=== PATIENT | female | born 1990 | race Asian ===

== ENCOUNTER 2018-11-14 05:41 | Inpatient (IN) | payer BC ==
[~2018-11-14] VITALS: Ht 167.6 cm; Wt 81.2 kg
[~2018-11-14 05:41] MED LIST: CYAN100T PO; FERR324T4 PO; PREN-134 PO
[2018-11-14] MEDS ORDERED: LACTATED RINGERS 1,000 ML IV SCH (06:15)
[2018-11-14 06:41] LABS: EOSINOPHILS % 2.1 % (0.0-5.0); HEMATOCRIT. 35.5 % (36.0-48.0); HEMOGLOBIN. 11.4 g/dL (12.0-16.0); LYMPHOCYTES % 35.1 % (20.0-50.0); MEAN CORPUSCULAR HEMOGLOBIN 27.5 pg (28.0-32.0); MEAN CORPUSCULAR VOLUME 85.6 fL (81.0-99.0); MEAN PLATELET VOLUME 7.5 fl (7.4-10.4); MONOCYTES % 7.4 % (2.0-8.0); NEUTROPHILS % 54.4 % (40.0-76.0); PLATELET 402 x1000/uL (130-400); RED BLOOD CELL COUNT 4.15 mill/uL (4.2-5.4); RED CELL DISTRIBUTION WIDTH 15.8 % (11.6-14.6)
[2018-11-14 06:45] LABS: CLARITY URINE CLEAR (CLEAR); COLOR URINE YELLOW (YELLOW); KETONES URINE NEGATIVE (NEGATIVE); LEUKOCYTE ESTERASE URINE NEGATIVE (NEGATIVE); NITRITE URINE NEGATIVE (NEGATIVE); OCCULT BLOOD URINE NEGATIVE (NEGATIVE); PROTEIN URINE NEGATIVE (NEGATIVE); UROBILINOGEN URINE 0.2 E.U./dL (0.2-1.0)
[2018-11-14 06:50] LABS: UCG SCREEN NEGATIVE
[2018-11-14 06:50] LABS: PARTIAL THROMBOPLASTIN TIME 33.4 sec (23.4-31.0); PROTHROMBIN TIME 9.8 sec (9.1-11.1)
[2018-11-14] MEDS ORDERED: VASOPRESSIN 20 UNIT/ML 1ML ONE (06:50)
[2018-11-14 06:51] LABS: CHLORIDE 107 mEq/L (98-107)
[2018-11-14] MEDS ORDERED: MIDAZOLAM HCL 2 MG/2 ML VIAL ONE (07:20)
[2018-11-14] MEDS ORDERED: FENTANYL CITRATE/PF 50MCG/ML 5ML VIAL ONE (07:20)
[2018-11-14] MEDS ORDERED: PROPOFOL 200MG/20ML VIAL IV ONE ×3 (07:20→09:59)
[2018-11-14] MEDS ORDERED: ROCURONIUM BROMIDE 10MG/ML VIAL 5ML IV ONE ×2 (07:20→08:52)
[2018-11-14] MEDS ORDERED: LIDOCAINE HCL/PF 1% 10 MG/ML 5ML VIAL ONE (07:24)
[2018-11-14] MEDS ORDERED: METHYLENE BLUE 50 MG/10 ML AMP IV ONE (07:35)
[2018-11-14] MEDS ORDERED: DEXAMETHASONE 4MG/ML 1ML VIAL ONE (08:22)
[2018-11-14] MEDS ORDERED: ONDANSETRON HCL 4MG/2ML INJ ONE (08:22)
[2018-11-14] MEDS ORDERED: HYDROMORPHONE HCL/PF 2MG/ML (OR) ONE (09:05)
[2018-11-14] MEDS ORDERED: ONDANSETRON HCL 4MG/2ML INJ IV PRN (09:15)
[2018-11-14] MEDS ORDERED: MEPERIDINE HCL/PF 25MG/ML CPJ IV PRN (09:15)
[2018-11-14] MEDS ORDERED: GLYCOPYRROLATE 0.2 MG/ML 2ML VIAL ONE (10:26)
[2018-11-14] MEDS ORDERED: HYDROMORPHONE PCA 10MG/50ML IV PRN (11:30)
[2018-11-14] MEDS ORDERED: ONDANSETRON INJ IV PRN (11:30)
[2018-11-14] MEDS ORDERED: NALOXONE INJ IV PRN (11:30)
[2018-11-14] MEDS ORDERED: DIPHENHYDRAMINE INJ IV PRN (11:30)
[2018-11-14] MEDS: HYDROMORPHONE HCL/PF 2MG/ML CPJ IV PRN ×6 (12:22→12:52)
[2018-11-14] MEDS: FENTANYL CITRATE/PF 50MCG/ML 2ML VIAL IV PRN ×2 (12:37→12:45)
[2018-11-14 15:00] VITALS: BP 131/69
[2018-11-14] MEDS: LACTATED RINGERS 1,000 ML IV SCH (17:33)
[2018-11-14 20:00] VITALS: BP 130/62
[2018-11-14] MEDS: IBUPROFEN 600MG TABLET PO PRN (20:13)
[2018-11-15] VITALS: BP 122/67
[2018-11-15] MEDS: LACTATED RINGERS 1,000 ML IV SCH ×3 (00:44→21:17)
[2018-11-15 04:27] VITALS: BP 109/51
[2018-11-15] MEDS: IBUPROFEN 600MG TABLET PO PRN ×3 (06:49→17:19)
[2018-11-15 07:59] VITALS: BP 118/74
[2018-11-15 08:00] VITALS: BP 118/74
[2018-11-15] MEDS: DOCUSATE SODIUM 100MG CAPSULE PO SCH (08:37)
[2018-11-15] MEDS: OXYCODONE HCL/ACETAMINOPHEN 5/325MG TABLET PO PRN ×2 (08:37→20:11)
[2018-11-15 11:46] VITALS: BP 118/56
[2018-11-15 15:50] VITALS: BP 113/63
[2018-11-15] MEDS: DOCUSATE SODIUM 100MG CAPSULE PO PRN (18:33)
[2018-11-15 21:01] LABS: HEMATOCRIT 28.7 % (36.0-48.0); HEMOGLOBIN 9.2 g/dL (12.0-16.0)
[2018-11-16] MEDS: IBUPROFEN 600MG TABLET PO PRN ×4 (03:51→21:37)
[2018-11-16] MEDS: LACTATED RINGERS 1,000 ML IV SCH ×3 (05:16→20:17)
[2018-11-16 08:00] VITALS: BP 115/71
[2018-11-16] MEDS: DOCUSATE SODIUM 100MG CAPSULE PO SCH (08:20)
[2018-11-16] MEDS: OXYCODONE HCL/ACETAMINOPHEN 5/325MG TABLET PO PRN ×2 (10:36→19:51)
[2018-11-16 12:00] VITALS: BP 119/66
[2018-11-16 16:00] VITALS: BP 129/78
[2018-11-16] MEDS: DOCUSATE SODIUM 100MG CAPSULE PO PRN (19:52)
[2018-11-16 20:00] VITALS: BP 128/69
[2018-11-17] VITALS: BP 122/72
[2018-11-17 04:00] VITALS: BP 133/72
[2018-11-17] MEDS: LACTATED RINGERS 1,000 ML IV SCH (04:51)
[2018-11-17] MEDS: IBUPROFEN 600MG TABLET PO PRN (06:26)
[2018-11-17 07:54] VITALS: BP 130/76
[2018-11-17 08:00] VITALS: BP 130/68
[2018-11-17 08:48] VITALS: BP 130/76
[2018-11-17] MEDS: OXYCODONE HCL/ACETAMINOPHEN 5/325MG TABLET PO PRN (08:48)
[2018-11-17] MEDS: DOCUSATE SODIUM 100MG CAPSULE PO SCH (09:00)
== END 2018-11-17 11:10 | disposition home or self-care (01) | DRG 742 ==
LOC: OR 05:41 → OBSVTOIN 05:42 → 6EST 05:42
PROVIDERS: ADMIT Obstetrics & Gynecology Obstetrics; ATTEND Obstetrics & Gynecology Obstetrics
PROC: 0UB90ZZ Excision of Uterus, Open Approach (ICD-10-PCS; principal; 2018-11-14)
PROC: 0U5 Female Reproductive System, Destruction (ICD-10-PCS; 2018-11-14)
DX: D25.1 Intramural leiomyoma of uterus (principal); R71.0 Precipitous drop in hematocrit; N80.0 Endometriosis of uterus; N80.1 Endometriosis of ovary; N63.0 Unspecified lump in unspecified breast; Z80.0 Family history of malignant neoplasm of digestive organs; Z82.3 Family history of stroke; Z83.3 Family history of diabetes mellitus
CPT/HCPCS: 36415; 71045; 80048; 81025; 85014; 85018; 86850; 86900; 88305; 93005; A6261; C1725; J1100; J1170; J2250; J2405; J2704; J3010; J3490; J7120; Q9968

== ENCOUNTER 2019-07-31 05:29 | Day surgery (SDC) | payer BC ==
[~2019-07-31] VITALS: Ht 167.6 cm; Wt 81.6 kg
[~2019-07-31 05:29] MED LIST changes: -CYAN100T PO; +CYAN100T45 PO
[2019-07-31 06:23] LABS: BASOPHILS % 0.6 % (0.0-2.0); EOSINOPHILS % 3.2 % (0.0-5.0); HEMATOCRIT. 39.5 % (36.0-48.0); HEMOGLOBIN. 13.2 g/dL (12.0-16.0); LYMPHOCYTES % 28.9 % (20.0-50.0); MEAN CORPUSCULAR HEMOGLOBIN 26.8 pg (28.0-32.0); MEAN CORPUSCULAR VOLUME 80.3 fL (81.0-99.0); MEAN PLATELET VOLUME 7.9 fl (7.4-10.4); MONOCYTES % 7.7 % (2.0-8.0); NEUTROPHILS % 59.6 % (40.0-76.0); PLATELET 313 x1000/uL (130-400); RED BLOOD CELL COUNT 4.92 mill/uL (4.2-5.4); RED CELL DISTRIBUTION WIDTH 19.1 % (11.6-14.6)
[2019-07-31 06:29] LABS: CLARITY URINE CLEAR (CLEAR); COLOR URINE YELLOW (YELLOW); KETONES URINE NEGATIVE (NEGATIVE); LEUKOCYTE ESTERASE URINE NEGATIVE (NEGATIVE); NITRITE URINE NEGATIVE (NEGATIVE); OCCULT BLOOD URINE TRACE (NEGATIVE); PH URINE 5.5 (4.5-8.0); PROTEIN URINE NEGATIVE (NEGATIVE); SPECIFIC GRAVITY URINE 1.016 (1.005-1.030); UROBILINOGEN URINE 0.2 E.U./dL (0.2-1.0)
[2019-07-31 06:30] LABS: UCG SCREEN NEGATIVE
[2019-07-31 06:30] LABS: CHLORIDE 103 mEq/L (98-107)
[2019-07-31] MEDS ORDERED: LACTATED RINGERS 1,000 ML IV SCH (06:30)
[2019-07-31] MEDS ORDERED: BUPIVACAINE HCL/EPINEPHRINE 0.5%/0.0005 30ML ONE (07:01)
[2019-07-31] MEDS ORDERED: MIDAZOLAM HCL 2 MG/2 ML VIAL ONE (07:05)
[2019-07-31] MEDS ORDERED: ROCURONIUM BROMIDE 10MG/ML VIAL 5ML IV ONE ×2 (07:05→08:58)
[2019-07-31] MEDS ORDERED: PROPOFOL 200MG/20ML VIAL IV ONE (07:05)
[2019-07-31] MEDS ORDERED: FENTANYL CITRATE/PF 50MCG/ML 2ML VIAL ONE (07:05)
[2019-07-31 07:14] LABS: PARTIAL THROMBOPLASTIN TIME 32.4 sec (23.4-31.0); PROTHROMBIN TIME 10.2 sec (9.6-11.0)
[2019-07-31] MEDS ORDERED: METHYLENE BLUE 50 MG/10 ML AMP IV ONE (07:46)
[2019-07-31] MEDS ORDERED: CEFAZOLIN SODIUM 1000MG/VIAL ONE (07:50)
[2019-07-31] MEDS ORDERED: PROPOFOL 10MG/ML 100ML 100 ML IV ONE (07:58)
[2019-07-31] MEDS ORDERED: SKIN ADHESIVE 0.7 GM EA TOP ONE (08:21)
[2019-07-31] MEDS ORDERED: NEOSTIGMINE METHYLSULFATE 1MG/ML 10 ML VIAL ONE (08:59)
[2019-07-31] MEDS ORDERED: GLYCOPYRROLATE 0.2 MG/ML 2ML VIAL ONE ×2 (08:59→09:25)
[2019-07-31] MEDS ORDERED: ONDANSETRON HCL 4MG/2ML INJ IV PRN (09:15)
[2019-07-31] MEDS ORDERED: MEPERIDINE HCL/PF 25MG/ML CPJ IV PRN (09:15)
[2019-07-31] MEDS: FENTANYL CITRATE/PF 50MCG/ML 2ML VIAL IV PRN ×2 (09:59→10:05)
[2019-07-31] MEDS: HYDROMORPHONE HCL/PF 2MG/ML CPJ IV PRN ×2 (10:12→10:22)
[2019-07-31] MEDS ORDERED: HYDROMORPHONE HCL/PF 2MG/ML CPJ ONE (10:12)
[2019-07-31] MEDS ORDERED: ONDANSETRON HCL 4MG/2ML INJ ONE (10:13)
[2019-07-31 10:22] VITALS: BP 121/71
[2019-07-31] MEDS ORDERED: ACETAMINOPHEN 500MG TABLET PO PRN (10:45)
== END 2019-07-31 12:30 | disposition home or self-care (01) ==
LOC: OR 05:29
PROVIDERS: ATTEND Obstetrics & Gynecology Obstetrics
DX: N92.1 Excessive and frequent menstruation with irregular cycle (principal); R10.2 Pelvic and perineal pain; N73.6 Female pelvic peritoneal adhesions (postinfective); N84.0 Polyp of corpus uteri; Z83.3 Family history of diabetes mellitus; Z98.890 Other specified postprocedural states
CPT/HCPCS: 36415; 58350; 58558; 58660; 80048; 81003; 81025; 85025; 85610; 85730; 88305; J0690; J1170; J2250; J2704; J2710; J3010; J3490; Q9968; J0171; J2405